=== PATIENT | female | born 1995 | race Caucasian/White ===

== ENCOUNTER 2017-11-05 13:35 | Emergency (ER) | payer OTHER ==
[~2017-11-05] VITALS: Ht 167.6 cm; Wt 108.2 kg
[~2017-11-05 13:35] MED LIST: IBUP1TAB7 PO; ROBA500T PO
[2017-11-05 13:36] VITALS: BP 121/75; PULSE 84; RESP 18; TEMP 98; O2SAT 97
[2017-11-05 14:28] LABS: BACTERIA, URINE MOD /hpf; BILIRUBIN, URINE NEG (NEG); BLOOD, URINE MOD (NEG); GLUCOSE,URINE NEG (NEG); HYALINE CAST, URINE 2 /lpf (RARE); KETONE, URINE TRACE mg/dL (NEG); MUCUS URINE MANY /lpf (OCC); NITRITE,URINE POS (NEG); SQUAMOUS EPITHELIAL CELL URINE 6 /hpf (0-5); URINE COLOR YELLOW (YELLW/STRAW); URINE LEUKOCYTE ESTERASE MOD (NEG)
[2017-11-05 15:19] LABS: AUTOMATED NEUTROPHIL # 6.9 TH/MM3 (1.8-7.7); BASOPHIL % 0.4 % (0.0-2.0); EOSINOPHIL # 0.4 TH/MM3 (0-0.4); EOSINOPHIL % 3.6 % (0.0-4.0); HEMATOCRIT 42.6 % (35.0-46.0); HEMOGLOBIN 14.5 GM/DL (11.6-15.3); LYMPH % 22.9 % (9.0-44.0); LYMPHOCYTE # 2.5 TH/MM3 (1.0-4.8); MEAN CELL VOLUME 91.2 FL (80.0-100.0); MEAN PLATELET VOLUME 9.2 FL (7.0-11.0); MONO % 10.6 % (0.0-8.0); MONOCYTE # 1.2 TH/MM3 (0-0.9); NEUT % 62.5 % (16.0-70.0); PLATELET COUNT 205 TH/MM3 (150-450); RED BLOOD COUNT 4.67 MIL/MM3 (4.00-5.30); RED CELL DISTRIBUTION WIDTH 13.5 % (11.6-17.2); WHITE BLOOD COUNT 11.1 TH/MM3 (4.0-11.0)
[2017-11-05 15:41] LABS: ALBUMIN 3.9 GM/DL (3.4-5.0); ALT (GPT) 23 U/L (10-53); AST (GOT) 15 U/L (15-37); BICARBONATE 30.4 MEQ/L (21.0-32.0); BLOOD UREA NITROGEN 9 MG/DL (7-18); CALCIUM 8.8 MG/DL (8.5-10.1); CHLORIDE 105 MEQ/L (98-107); CREATININE 0.85 MG/DL (0.50-1.00); GLOMERULAR FILTRATION RATE 82 ML/MIN (>89); GLUCOSE,RANDOM 78 MG/DL (74-106); SODIUM (NA) 140 MEQ/L (136-145)
[2017-11-05 15:44] LABS: ALKALINE PHOSPHATASE 60 U/L (45-117); TOTAL BILIRUBIN ADULT 0.5 MG/DL (0.2-1.0); TOTAL PROTEIN 8.1 GM/DL (6.4-8.2)
[2017-11-05] MEDS ORDERED: BACT800T5 PO (16:11)
--- NOTE | 2017-11-05 16:11 | PD ---
HPI Chief Complaint: Dizziness Time Seen by Provider: 15:57 Travel History International Travel<30 days: No Contact w/Intl Traveler<30days: No Traveled to known affect area: No History of Present Illness HPI 22-year-old female complains of lightheadedness, headache, coughing congestion, chills. Patient states that the symptoms started today. Patient states that headache is aching headache started suddenly and got better since then. Patient denies any visual change. Patient denies any neck pain. Patient denies earaches or sore throat. Patient states that she has mild intermittent cough. Patient denies any nausea vomiting diarrhea. Patient denies any dysuria or frequency. Patient denies any vaginal discharge or bleeding. PFSH Past Medical History Hx Anticoagulant Therapy: No Autoimmune Disease: No Anxiety: No Depression: No Cardiovascular Problems: No Chemotherapy: No Cerebrovascular Accident: No Diabetes: No Diminished Hearing: No Genitourinary: No Musculoskeletal: No Neurologic: No Psychiatric: No Respiratory: No ?: Not Past Surgical History Abdominal Surgery: Yes (appendectomy at age 8) Appendectomy: Yes Hysterectomy: No Tonsillectomy: Yes Other Surgery: Yes Social History Alcohol Use: Yes Tobacco Use: Yes Substance Use: No Allergies-Medications (Allergen,Severity, Reaction): Coded Allergies: No Known Allergies (Verified , 08/31/16) Reported Meds & Prescriptions Reported Meds & Active Scripts Active Robaxin (Methocarbamol) 500 Mg Tab 500 Mg PO QID PRN Ibuprofen 800 Mg Tab 800 Mg PO Q8H PRN Review of Systems General / Constitutional: No: Fever Eyes: No: Visual changes HENT: Positive: Headaches, Lightheadedness, Congestion Cardiovascular: No: Chest Pain or Discomfort Respiratory: Positive: Cough, No: Shortness of Breath Gastrointestinal: No: Abdominal Pain Genitourinary: No: Dysuria Musculoskeletal: No: Pain Skin: No Rash Neurologic: No: Weakness Psychiatric: No: Depression Endocrine: No: Polydipsia Hematologic/Lymphatic: No: Easy Bruising Physical Exam Narrative GENERAL: Well-nourished, well-developed patient. SKIN: Focused skin assessment warm/dry. HEAD: Normocephalic. EYES: No scleral icterus. No injection or drainage. TM: Clear. Throat: Nonerythematous. NECK: Supple, trachea midline. No JVD or lymphadenopathy. No meningismus CARDIOVASCULAR: Regular rate and rhythm without murmurs, gallops, or rubs. RESPIRATORY: Breath sounds equal bilaterally. No accessory muscle use. GASTROINTESTINAL: Abdomen soft, non-tender, nondistended. MUSCULOSKELETAL: No cyanosis, or edema. BACK: Nontender without obvious deformity. No CVA tenderness. Data Data Last Documented VS Vital Signs Date Time Temp Pulse Resp B/P (MAP) Pulse Ox O2 Delivery O2 Flow Rate FiO2 11/05/17 13:36 98.0 84 18 121/75 (90) 97 Room Air Orders Orders Complete Blood Count With Diff (11/05/17 13:49) Comprehensive Metabolic Panel (11/05/17 13:49) Urinalysis - C+S If Indicated (11/05/17 13:49) Ed Urine Pregnancytest Poc (11/05/17 13:49) Influenzae A/B Antigen (11/05/17 13:49) Urine Culture (11/05/17 14:09) Labs Laboratory Tests Test 11/05/17 14:09 11/05/17 14:49 Urine Color YELLOW Urine Turbidity HAZY Urine pH 6.0 Urine Specific [place] 1.028 Urine Protein 30 mg/dL Urine Glucose (UA) NEG mg/dL Urine Ketones TRACE mg/dL Urine Occult Blood MOD Urine Nitrite POS Urine Bilirubin NEG Urine Urobilinogen 2.0 MG/DL Urine Leukocyte Esterase MOD Urine RBC 19 /hpf Urine WBC 11 /hpf Urine Squamous Epithelial Cells 6 /hpf Urine Bacteria MOD /hpf Urine Hyaline Casts 2 /lpf Urine Mucus MANY /lpf Microscopic Urinalysis Comment CULTURE INDICATED White Blood Count 11.1 TH/MM3 Red Blood Count 4.67 MIL/MM3 Hemoglobin 14.5 GM/DL Hematocrit 42.6 % Mean Corpuscular Volume 91.2 FL Mean Corpuscular Hemoglobin 31.0 PG Mean Corpuscular Hemoglobin Concent 34.0 % Red Cell Distribution Width 13.5 % Platelet Count 205 TH/MM3 Mean Platelet Volume 9.2 FL Neutrophils (%) (Auto) 62.5 % Lymphocytes (%) (Auto) 22.9 % Monocytes (%) (Auto) 10.6 % Eosinophils (%) (Auto) 3.6 % Basophils (%) (Auto) 0.4 % Neutrophils # (Auto) 6.9 TH/MM3 Lymphocytes # (Auto) 2.5 TH/MM3 Monocytes # (Auto) 1.2 TH/MM3 Eosinophils # (Auto) 0.4 TH/MM3 Basophils # (Auto) 0.0 TH/MM3 CBC Comment DIFF FINAL Differential Comment Blood Urea Nitrogen 9 MG/DL Creatinine 0.85 MG/DL Random Glucose 78 MG/DL Total Protein 8.1 GM/DL Albumin 3.9 GM/DL Calcium Level 8.8 MG/DL Alkaline Phosphatase 60 U/L Aspartate Amino Transf (AST/SGOT) 15 U/L Alanine Aminotransferase (ALT/SGPT) 23 U/L Total Bilirubin 0.5 MG/DL Sodium Level 140 MEQ/L Potassium Level 3.7 MEQ/L Chloride Level 105 MEQ/L Carbon Dioxide Level 30.4 MEQ/L Anion Gap 5 MEQ/L Estimat Glomerular Filtration Rate 82 ML/MIN [facility] Medical Decision Making Medical Screen Exam Complete: Yes Emergency Medical Condition: Yes Interpretation(s) 1609 p.m. CBC within normal limit. CMP within normal limit. UA positive with WBC and RBC and bacteria. Differential Diagnosis Differential diagnosis including viral syndrome, migraine headache, tension headache, cluster headache, bronchitis, pneumonia, UTI. Narrative Course 22-year-old female with headache, lightheadedness, congestion, coughing, chills. Diagnosis Primary Impression: UTI (urinary tract infection) Qualified Codes: N30.00 - Acute cystitis without hematuria Additional Impression: Viral syndrome Patient Instructions: General Instructions Additional Instructions: Take medications as directed. Tylenol ibuprofen for headache. Follow-up with personal physician. Return if worse. Med/Other Pt SpecificInfo: Prescription(s) given Scripts Sulfamethoxazole-Trimethoprim (Bactrim DS) 800-160 Mg Tab 1 TAB PO BID for Infection, #6 TAB 0 Refills Prov: Chino Yen MD 11/05/17 Disposition: 01 DISCHARGE HOME Condition: Stable Chino Yen MD Nov 05, 2017 16:11
== END 2017-11-05 16:20 | disposition home or self-care (01) ==
LOC: NEPD 13:35
DX: N30.00 Acute cystitis without hematuria (principal); B34.9 Viral infection, unspecified; B96.20 Unspecified Escherichia coli [E. coli] as the cause of diseases classified elsewhere; Z72.0 Tobacco use
CPT/HCPCS: 80053; 81001; 84703; 85025; 87077; 87086; 87186; 87804; 99283

== ENCOUNTER 2018-01-21 15:00 | Emergency (ER) | payer OTHER ==
[~2018-01-21] VITALS: Ht 167.6 cm; Wt 104.5 kg
[~2018-01-21 15:00] MED LIST changes: +BACT800T5 PO; -IBUP1TAB7 PO; -ROBA500T PO
[2018-01-21 15:04] VITALS: BP 188/80; PULSE 100; RESP 18; TEMP 98.3; O2SAT 98
--- NOTE | 2018-01-21 15:36 | PD ---
HPI Chief Complaint: Flank/Kidney Pain Time Seen by Provider: 15:34 Travel History International Travel<30 days: No Contact w/Intl Traveler<30days: No Traveled to known affect area: No History of Present Illness HPI 23-year-old female presents to the emergency department with complaint of left flank pain and burning on urination that started on Saturday. She was seen at [facility] on Saturday with complaint of pelvic cramping, as if she is going to start her menses and was diagnosed with a "bacterial infection" and was given Bactrim, she thinks. She said she did not fill the antibiotic because her roommate had the same antibiotic. She last took the antibiotic last on Saturday morning. Said she did not have time to go fill her own prescription. Denies fever, vomiting, abdominal pain. Denies hematuria, urine frequency. Denies abnormal vaginal discharge, odor. Rates left flank pain / . Has been taking ibuprofen for symptom management and last took last night. No known aggravating or relieving factors. Denies history of kidney stones. Last menstrual period is unknown and she has the Mirena. No primary care provider. Allergies to iodine. Denies significant past medical history. Has no other medical complaints. No other modifying factors or associated signs and symptoms. PFSH Past Medical History Hx Anticoagulant Therapy: No Autoimmune Disease: No Anxiety: No Depression: No Cardiovascular Problems: No Chemotherapy: No Cerebrovascular Accident: No Diabetes: No Diminished Hearing: No Genitourinary: No Musculoskeletal: No Neurologic: No Psychiatric: No Respiratory: No Immunizations Current: Yes ?: Not LMP: on Mirena Past Surgical History Abdominal Surgery: Yes (appendectomy at age 8) Appendectomy: Yes Cholecystectomy: Yes Hysterectomy: No Tonsillectomy: Yes Other Surgery: Yes Social History Alcohol Use: Yes Tobacco Use: Yes Substance Use: Yes (marijuana) Allergies-Medications (Allergen,Severity, Reaction): Coded Allergies: No Known Allergies (Verified Adverse Reaction, Unknown, 11/05/17) Reported Meds & Prescriptions Reported Meds & Active Scripts Active Levaquin (Levofloxacin) 500 Mg Tablet 500 Mg PO DAILY 10 Days Pyridium (Phenazopyridine HCl) 100 Mg Tab 100 Mg PO Q8H PRN 3 Days Bactrim DS (Sulfamethoxazole-Trimethoprim) 800-160 Mg Tab 1 Tab PO BID Review of Systems Except as stated in HPI: all other systems reviewed are Neg Physical Exam Narrative GENERAL: Well-nourished, well-developed female patient, in no acute distress SKIN: Warm and dry. No rash. HEAD: Atraumatic. Normocephalic. EYES: Pupils equal and round. No scleral icterus. No injection or drainage. ENT: Mucosa pink and moist. NECK: Trachea midline. CARDIOVASCULAR: Regular rate and rhythm. No murmur appreciated. RESPIRATORY: No accessory muscle use. Clear to auscultation. Breath sounds equal bilaterally. GASTROINTESTINAL: Abdomen soft, non-tender, nondistended. Hepatic and splenic margins not palpable. Bowel sounds are active 4 quadrants. Bladder nontender and nondistended. MUSCULOSKELETAL: No obvious deformities. No clubbing. No cyanosis. No edema. BACK: Left CVA tenderness NEUROLOGICAL: Awake and alert. Oriented 3. No obvious cranial nerve deficits. Motor grossly within normal limits. Normal speech. Moves all extremities. 5/5 strength to all extremities. PSYCHIATRIC: Appropriate mood and affect; insight and judgment normal. Data Data Last Documented VS Vital Signs Date Time Temp Pulse Resp B/P (MAP) Pulse Ox O2 Delivery O2 Flow Rate FiO2 01/21/18 19:07 78 16 113/80 (91) 98 01/21/18 15:04 98.3 Orders Orders Complete Blood Count With Diff (01/21/18 15:06) Comprehensive Metabolic Panel (01/21/18 15:06) Lipase (01/21/18 15:06) Urinalysis - C+S If Indicated (01/21/18 15:06) Ed Urine Pregnancytest Poc (01/21/18 15:06) Ct Abd/Pel W/O Iv Contrast (01/21/18 15:55) Iv Access Insert/Monitor (01/21/18 15:55) Sodium Chlor 0.9% 1000 Ml Inj (Ns 1000 M (01/21/18 15:55) Sodium Chloride 0.9% Flush (Ns Flush) (01/21/18 16:00) Ketorolac Inj (Toradol Inj) (01/21/18 16:00) Urine Culture (01/21/18 15:35) Ceftriaxone Inj (Rocephin Inj) (01/21/18 17:30) Ed Discharge Order (01/21/18 18:59) Labs Laboratory Tests Test 01/21/18 15:35 White Blood Count 13.3 TH/MM3 Red Blood Count 4.65 MIL/MM3 Hemoglobin 14.2 GM/DL Hematocrit 42.6 % Mean Corpuscular Volume 91.4 FL Mean Corpuscular Hemoglobin 30.6 PG Mean Corpuscular Hemoglobin Concent 33.4 % Red Cell Distribution Width 13.4 % Platelet Count 198 TH/MM3 Mean Platelet Volume 9.3 FL Neutrophils (%) (Auto) 66.3 % Lymphocytes (%) (Auto) 24.7 % Monocytes (%) (Auto) 6.1 % Eosinophils (%) (Auto) 2.5 % Basophils (%) (Auto) 0.4 % Neutrophils # (Auto) 8.8 TH/MM3 Lymphocytes # (Auto) 3.3 TH/MM3 Monocytes # (Auto) 0.8 TH/MM3 Eosinophils # (Auto) 0.3 TH/MM3 Basophils # (Auto) 0.0 TH/MM3 CBC Comment DIFF FINAL Differential Comment Urine Color YELLOW Urine Turbidity HAZY Urine pH 7.0 Urine Specific [place] 1.022 Urine Protein TRACE mg/dL Urine Glucose (UA) NEG mg/dL Urine Ketones NEG mg/dL Urine Occult Blood SMALL Urine Nitrite POS Urine Bilirubin NEG Urine Urobilinogen LESS THAN 2.0 MG/DL Urine Leukocyte Esterase TRACE Urine RBC 7 /hpf Urine WBC 6 /hpf Urine Squamous Epithelial Cells 6 /hpf Urine Amorphous Sediment RARE Urine Bacteria MANY /hpf Urine Mucus FEW /lpf Microscopic Urinalysis Comment CULTURE INDICATED Blood Urea Nitrogen 8 MG/DL Creatinine 0.81 MG/DL Random Glucose 109 MG/DL Total Protein 7.4 GM/DL Albumin 3.5 GM/DL Calcium Level 8.6 MG/DL Alkaline Phosphatase 50 U/L Aspartate Amino Transf (AST/SGOT) 12 U/L Alanine Aminotransferase (ALT/SGPT) 25 U/L Total Bilirubin 0.5 MG/DL Sodium Level 143 MEQ/L Potassium Level 3.7 MEQ/L Chloride Level 106 MEQ/L Carbon Dioxide Level 32.1 MEQ/L Anion Gap 5 MEQ/L Estimat Glomerular Filtration Rate 86 ML/MIN Lipase 164 U/L [facility] Medical Decision Making Medical Screen Exam Complete: Yes Emergency Medical Condition: Yes Medical Record Reviewed: Yes Differential Diagnosis UTI, pyelonephritis, kidney stone Narrative Course 23-year-old female with dysuria and left flank pain since Saturday. She was seen on Saturday at [facility] and was told that she had a bacterial infection in her urine and thinks she has been taking Bactrim, but is unsure. She last took the Bactrim on Saturday morning because she did not fill her own prescription was taking her roommates Bactrim. I am suspecting pyelonephritis but will do CT scan abdomen/pelvis to rule out kidney stone. Patient has left- sided CVA tenderness on exam. CBC, CMP, lipase, UA, UPT, CT abdomen/pelvis, IV , Toradol, normal saline bolus ordered. 1727: UPT negative. CBC unremarkable. CMP unremarkable. Lipase 164. Urinalysis with signs of infection and reflex to culture. Rocephin 1 g IV ordered. 1900: CT abdomen/pelvis conclude: Abdomen/Pelvis CT 01/21/18 1555 Signed Impressions: Service Date/Time: Sunday, January 21, 2018 17:31 - CONCLUSION: 1. Nonobstructing subcentimeter stones in the lower pole collecting system of left kidney. Cortical scarring laterally in the upper and midpole portions of the same kidney. 2. No hydronephrosis or nephrolithiasis in either kidney. 3. CT findings suggest early nephrocalcinosis bilaterally with some faint calcifications in the medullary portion of both kidneys. 4. Faint groundglass density in the left lung base may represent early pneumonitis. No confluent infiltrate. 5. Patient has an IUD which appears to be appropriately positioned. Nonvisualization of the gallbladder and appendix suggesting prior cholecystectomy and appendectomy. Bang Finley MD CT findings discussed with the patient and patient provided a copy of the CT report. Dr. Kevin reviewed the CT findings and recommended Levaquin for both UTI and pneumonitis. Patient reports that she has been coughing for the past week, which she did not mention previously. Levaquin, Pyridium prescribed for home. Instructed patient to follow up with primary care provider. Patient verbalizes understanding and agreement with treatment plan. Patient is medically cleared and stable for discharge. Discussed reasons to return to the emergency department. Patient agrees with treatment plan. The patients vital signs are stable and the patient is stable for outpatient follow-up and treatment. Patient discharged home, stable and in no acute distress. Diagnosis Primary Impression: UTI (urinary tract infection) Qualified Codes: N39.0 - Urinary tract infection, site not specified; R31.9 - Hematuria, unspecified Additional Impression: Pneumonitis Referrals: Primary Care Physician Patient Instructions: Community Acquired Pneumonia (ED), General Instructions, Urinary Tract Infection in Women (ED) Departure Forms: Tests/Procedures, Work Release Enter return to work date: Jan 23, 2018 Additional Instructions: Take antibiotics as prescribed and complete full course Take Pyridium for bladder spasms: Pyridium will turn your urine bright orange Drink plenty of fluids Maintain good personal hygiene Follow-up with primary care provider Return to the emergency department immediately with worsening of symptoms Med/Other Pt SpecificInfo: Prescription(s) given Scripts Levofloxacin (Levaquin) 500 Mg Tablet 500 MG PO DAILY for Infection for 10 Days, #10 TAB 0 Refills Prov: Susan Siddiqi 01/21/18 Phenazopyridine (Pyridium) 100 Mg Tab 100 MG PO Q8H Y for DYSURIA for 3 Days, #9 TAB 0 Refills Prov: Susan Siddiqi 01/21/18 Disposition: 01 DISCHARGE HOME Condition: Stable Susan Siddiqi Jan 21, 2018 15:36
[2018-01-21] MEDS ORDERED: SODIUM CHLOR 0.9% 1000 ML INJ 1,000 ML IV SCH (15:55)
[2018-01-21] MEDS ORDERED: KETOROLAC TROMETHAMINE 30 MG/ML (IVP) VIAL IVP ONE (16:00)
[2018-01-21] MEDS ORDERED: SODIUM CHLORIDE 0.9% FLUSH 10 ML FLUSH IV FLUSH PRN (16:00)
[2018-01-21 16:51] LABS: AUTOMATED NEUTROPHIL # 8.8 TH/MM3 (1.8-7.7); BASOPHIL % 0.4 % (0.0-2.0); EOSINOPHIL # 0.3 TH/MM3 (0-0.4); EOSINOPHIL % 2.5 % (0.0-4.0); HEMATOCRIT 42.6 % (35.0-46.0); HEMOGLOBIN 14.2 GM/DL (11.6-15.3); LYMPH % 24.7 % (9.0-44.0); LYMPHOCYTE # 3.3 TH/MM3 (1.0-4.8); MEAN CELL VOLUME 91.4 FL (80.0-100.0); MEAN CORPUSCULAR HEMOGLOBIN 30.6 PG (27.0-34.0); MEAN CORPUSCULAR HGB CONC 33.4 % (32.0-36.0); MEAN PLATELET VOLUME 9.3 FL (7.0-11.0); MONO % 6.1 % (0.0-8.0); MONOCYTE # 0.8 TH/MM3 (0-0.9); NEUT % 66.3 % (16.0-70.0); PLATELET COUNT 198 TH/MM3 (150-450); RED BLOOD COUNT 4.65 MIL/MM3 (4.00-5.30); RED CELL DISTRIBUTION WIDTH 13.4 % (11.6-17.2); WHITE BLOOD COUNT 13.3 TH/MM3 (4.0-11.0)
[2018-01-21 17:02] LABS: AMORPHOUS SEDIMENT, URINE RARE; BACTERIA, URINE MANY /hpf; BILIRUBIN, URINE NEG (NEG); BLOOD, URINE SMALL (NEG); GLUCOSE,URINE NEG (NEG); KETONE, URINE NEG (NEG); MUCUS URINE FEW /lpf (OCC); NITRITE,URINE POS (NEG); SQUAMOUS EPITHELIAL CELL URINE 6 /hpf (0-5); URINE COLOR YELLOW (YELLW/STRAW); URINE LEUKOCYTE ESTERASE TRACE (NEG)
[2018-01-21 17:07] LABS: ALBUMIN 3.5 GM/DL (3.4-5.0); ALT (GPT) 25 U/L (10-53); AST (GOT) 12 U/L (15-37); BICARBONATE 32.1 MEQ/L (21.0-32.0); BLOOD UREA NITROGEN 8 MG/DL (7-18); CALCIUM 8.6 MG/DL (8.5-10.1); CHLORIDE 106 MEQ/L (98-107); CREATININE 0.81 MG/DL (0.50-1.00); GLOMERULAR FILTRATION RATE 86 ML/MIN (>89); GLUCOSE,RANDOM 109 MG/DL (74-106); SODIUM (NA) 143 MEQ/L (136-145)
[2018-01-21 17:09] LABS: ALKALINE PHOSPHATASE 50 U/L (45-117); TOTAL BILIRUBIN ADULT 0.5 MG/DL (0.2-1.0); TOTAL PROTEIN 7.4 GM/DL (6.4-8.2)
[2018-01-21] MEDS ORDERED: cefTRIAXone INJ 1,000 MG in SODIUM CHLORIDE 0.9% INJ 100 ML IV ONE (17:30)
[2018-01-21] MEDS ORDERED: CEPH-460 PO (17:42)
[2018-01-21] MEDS ORDERED: PHEN0.4T PO (17:42)
--- NOTE | 2018-01-21 18:02 | RADRPT ---
EXAM DATE/TIME: 01/21/2018 17:31 [place] COMPARISON: No previous studies available for comparison. INDICATIONS : Left flank pain with burning urination. ORAL CONTRAST: No oral contrast ingested. RADIATION DOSE: 23.58 CTDIvol (mGy) MEDICAL HISTORY : None SURGICAL HISTORY : Appendectomy. Cholecystectomy. ENCOUNTER: Initial ACUITY: 1 day PAIN SCALE: 2/10 LOCATION: Left flank TECHNIQUE: Volumetric scanning of the abdomen and pelvis was performed. Using automated exposure control and ad justment of the mA and/or kV according to patient size, radiation dose was kept as low as reasonably achievable to obtain optimal diagnostic quality images. DICOM format image data is available electro nically for review and comparison. FINDINGS: LOWER LUNGS: Mild groundglass densities in the left lung base may represent a early pneumonitis. No confluent infi ltrates. LIVER: Homogeneous density without lesion. There is no dilation of the biliary tree. Gallbladder is not aakash ntified. SPLEEN: Normal size without lesion. PANCREAS: Within normal limits. KIDNEYS: Cortical scarring in the upper and midpole laterally of the left kidney. There may be some early medu llary nephrocalcinosis bilaterally with some faint calcification along the medullary complexes. Nonob structing 3-4 mm stone in the lower pole collecting system of left kidney with an additional 2-3 mm s tone more inferiorly. No ureteral calculi. No hydronephrosis ADRENAL GLANDS: Within normal limits. VASCULAR: There is no aortic aneurysm. BOWEL/MESENTERY: The stomach, small bowel, and colon demonstrate no acute abnormality. There is no free intraperitone al air or fluid. Appendix is not identified ABDOMINAL WALL: Within normal limits. RETROPERITONEUM: There is no lymphadenopathy. BLADDER: No wall thickening or mass. REPRODUCTIVE: IUD identified and appears to be appropriately positioned. INGUINAL: There is no lymphadenopathy or hernia. MUSCULOSKELETAL: Within normal limits for patient age. CONCLUSION: 1. Nonobstructing subcentimeter stones in the lower pole collecting system of left kidney. Cortical s carring laterally in the upper and midpole portions of the same kidney. 2. No hydronephrosis or nephrolithiasis in either kidney. 3. CT findings suggest early nephrocalcinosis bilaterally with some faint calcifications in the medul sugar portion of both kidneys. 4. Faint groundglass density in the left lung base may represent early pneumonitis. No confluent infi ltrate. 5. Patient has an IUD which appears to be appropriately positioned. Nonvisualization of the gallbladd er and appendix suggesting prior cholecystectomy and appendectomy. Bang Finley MD on January 21, 2018 at 17:54 Board Certified Radiologist. This report was verified electronically.
[2018-01-21] MEDS ORDERED: LEVA500T33 PO (18:59)
[2018-01-21 19:07] VITALS: BP 113/80
== END 2018-01-21 19:42 | disposition home or self-care (01) ==
LOC: NEPD 15:00
DX: N39.0 Urinary tract infection, site not specified (principal); R31.9 Hematuria, unspecified; J18.9 Pneumonia, unspecified organism; F12.90 Cannabis use, unspecified, uncomplicated; Z72.0 Tobacco use
CPT/HCPCS: 74176; 80053; 81001; 83690; 84703; 85025; 87077; 87086; 87186; 96361; 96374; 96375; 99284; J0696; J1885; J7030